=== PATIENT | female | born 1945 | race Caucasian/White ===

== ENCOUNTER 2017-03-30 11:23 | Emergency (ER) | payer MEDICARE, OTHER ==
[2017-03-30] MEDS ORDERED: HYDROcodone/Acetaminophen 5/325 mg Tablet ONE (12:21)
[2017-03-30] MEDS ORDERED: Acetaminophen 325 MG TAB ONE (12:36)
--- NOTE | 2017-03-30 13:26 | CT ---
NONCONTRAST CT OF THE BRAIN INDICATIONS: Trauma with head pain. COMPARISON: Prior exam dated 01/09/2016. FINDINGS: There is stable encephalomalacia involving the left parietal region. There are stable prior craniec kenyon changes involving the left parietal skull. Mild chronic small vessel white matter ischemic rachelle nge is similar. The septum pellucidum and third ventricle are midline. No definite acute infarct, hemorrhage, or hydrocephalus is present. IMPRESSION: 1. No acute intracranial abnormality. 2. Stable post surgical change involving the left parietal skull. 3. Stable chronic small vessel white matter ischemic change. POS: [facility]
--- NOTE | 2017-03-30 13:30 | CT ---
NONCONTRAST CT OF THE CERVICAL SPINE INDICATIONS: History of trauma with neck pain. COMPARISON: 01/09/2010 FINDINGS: No acute fracture or subluxation is evident. There is mild multilevel spondylosis of the cervical spine. The craniocervical junction is normal a ppearing. There is mild emphysematous change involving both lung apices. The prevertebral soft tissues are normal appearing. IMPRESSION: No acute fracture or subluxation demonstrated. POS: [facility]
--- NOTE | 2017-03-30 13:31 | RAD ---
RIGHT KNEE FOUR VIEWS HISTORY: Knee injury. FINDINGS: There are arthritic changes of the knee. There is some medial compartment narrowing. There is no f racture or joint effusion. IMPRESSION: No evidence of fracture. POS: [facility]
== END 2017-03-30 13:34 ==
LOC: MADERS 11:23
DX: S00.03XA Contusion of scalp, initial encounter (principal); S80.02XA Contusion of left knee, initial encounter; S80.01XA Contusion of right knee, initial encounter; E03.9 Hypothyroidism, unspecified; K21.9 Gastro-esophageal reflux disease without esophagitis; I10 Essential (primary) hypertension; E66.9 Obesity, unspecified; F03.90 Unspecified dementia, unspecified severity, without behavioral disturbance, psychotic disturbance, mood disturbance, and anxiety; Z87.891 Personal history of nicotine dependence; W01.198A Fall on same level from slipping, tripping and stumbling with subsequent striking against other object, initial encounter; Y92.129 Unspecified place in nursing home as the place of occurrence of the external cause
CPT/HCPCS: 70450; 72125

== ENCOUNTER 2018-02-09 19:31 | Emergency (ER) | payer MEDICARE, BC, OTHER ==
[2018-02-09] MEDS ORDERED: Sodium Chloride Irrig Solution 250 ML BOT ONE (19:38)
[2018-02-09] MEDS ORDERED: Triple Antibiotic Oint 1 GM Packet ONE (20:56)
--- NOTE | 2018-02-09 21:29 | CT ---
CT BRAIN WITHOUT CONTRAST: HISTORY: Fall. Trauma. Scalp hematoma. COMPARISON: CT brain from 03/30/2017. FINDINGS: Left craniectomy defect. Extensive white matter changes. Moderate atrophy. No acute hemorrhage or infarct. No midline shift or mass effect. Hypodensity of the right basal yarelis glia is new from the comparison examination, although not definitively acute. IMPRESSION: 1. Chronic changes. No acute intracranial abnormality. 2. New from the comparison examination hypodensity right basal ganglia, although not definitively ac julio. If the patient is having symptoms of an acute infarction, MRI would be recommended. POS: [facility]
--- NOTE | 2018-02-09 21:29 | RAD ---
RIGHT FOREARM TWO VIEWS: HISTORY: Fall. COMPARISON: None. FINDINGS: The forearm appears to be intact. No displaced fracture. Findings suggestive of chronic lateral epi condylitis. IMPRESSION: Intact forearm. POS: [facility]
== END 2018-02-09 21:05 ==
LOC: MADERS 19:31
DX: S00.03XA Contusion of scalp, initial encounter (principal); S50.811A Abrasion of right forearm, initial encounter; I10 Essential (primary) hypertension; E03.9 Hypothyroidism, unspecified; K21.9 Gastro-esophageal reflux disease without esophagitis; G40.909 Epilepsy, unspecified, not intractable, without status epilepticus; E66.9 Obesity, unspecified; Z86.718 Personal history of other venous thrombosis and embolism; F03.90 Unspecified dementia, unspecified severity, without behavioral disturbance, psychotic disturbance, mood disturbance, and anxiety; Z87.891 Personal history of nicotine dependence; W18.30XA Fall on same level, unspecified, initial encounter
CPT/HCPCS: 70450

== ENCOUNTER 2018-03-20 19:30 | Emergency (ER) | payer MEDICARE, BC, OTHER ==
--- NOTE | 2018-03-20 20:38 | RAD ---
RADIOGRAPH RIGHT ANKLE 3 VIEWS: DATE: 03/20/18 TIME: 8:01 p.m. HISTORY: 72-year-old female with acute traumatic right ankle pain from fall. COMPARISON: No prior right ankle radiographs are available. FINDINGS: There is a transversely oriented fracture with irregular margins across the mid portion of the medial malleolus, with mild, approximately 10-20% bone width lateral displacement of the distal fragment, a nd mild inferior displacement of the distal fragment. This is probably acute, although there is the p ossibility that this could be subacute. There are moderate degenerative changes of the ankle mortise. There is diffuse soft tissue swelling of the ankle, but asymmetrically especially in the medial and anterior aspects. No other fracture identified. IMPRESSION: 1. Mildly displaced, acute, traumatic fracture of medial malleolus. 2. Adjacent soft tissue contusion. 3. Moderate osteoarthrosis of the ankle. POS: [facility]
--- NOTE | 2018-03-20 21:07 | RAD ---
RADIOGRAPH THORACIC SPINE 2 VIEWS: 03/20/18 Attention Meredith in billing: this is a 2 view, not 1 view. HISTORY: 72-year-old female with persistent post-traumatic mid back pain after fall two weeks ago. COMPARISON: No recent T-spine studies in the last couple of years. FINDINGS: Mild lateral curvature. Flowing, bridging end plate marginal osteophytes throughout the mid and lower thoracic spine. Diffuse osteopenia. Degenerative changes. Vertebral body heights are maintained thro ughout the mid and lower thoracic spine. Upper thoracic spine is obscured on the lateral view. There is no swimmer's view. IMPRESSION: 1. No acute compression fracture of the mid and lower thoracic spine identified. 2. Upper thoracic spine is obscured. 3. Osteopenia. 4. DISH (diffuse idiopathic skeletal hyperostosis). POS: [facility]
--- NOTE | 2018-03-20 21:17 | RAD ---
RADIOGRAPH LUMBAR SPINE 2 VIEWS: 03/20/18 HISTORY: 72-year-old female with traumatic low back pain due to fall two weeks ago. FINDINGS: Vertebral body heights are maintained. There is no evidence of fracture. IMPRESSION: No evidence of compression fracture. mulu [] POS: [facility]
[2018-03-20] MEDS ORDERED: traMADol HCl 50 MG TAB ONE (21:54)
== END 2018-03-20 23:58 ==
LOC: MADERS 19:30
DX: S82.51XA Displaced fracture of medial malleolus of right tibia, initial encounter for closed fracture (principal); M54.5 Low back pain; I10 Essential (primary) hypertension; E03.9 Hypothyroidism, unspecified; K21.9 Gastro-esophageal reflux disease without esophagitis; E66.9 Obesity, unspecified; F03.90 Unspecified dementia, unspecified severity, without behavioral disturbance, psychotic disturbance, mood disturbance, and anxiety; Z87.891 Personal history of nicotine dependence; Z79.899 Other long term (current) drug therapy; W18.30XA Fall on same level, unspecified, initial encounter
CPT/HCPCS: 27760; 72020; 72100

== ENCOUNTER 2020-01-17 18:13 | Emergency (ER) | payer MEDICARE, BC, OTHER ==
[2020-01-17] MEDS ORDERED: Sodium Chloride 0.9% 1,000 ML ONE (18:58)
[2020-01-17] MEDS ORDERED: Cefepime 2 GM VIAL ONE (18:58)
[2020-01-17] MEDS ORDERED: Sodium Chloride 0.9% 250 ML 250 ML ONE (18:58)
[2020-01-17] MEDS ORDERED: Acetaminophen 650 MG Suppository ONE (18:58)
[2020-01-17] MEDS ORDERED: Sodium Chloride 0.9% 100 ML ONE (18:58)
[2020-01-17] MEDS ORDERED: Vancomycin HCl 500 MG VIAL ONE ×2 (18:58→20:37)
[2020-01-17] MEDS ORDERED: Vancomycin 1.5 GRAM/300 ML BAG 1.5 GM/300 ML BAG ONE (18:58)
[2020-01-17 19:24] LABS: #Basophils 0.1 thou/uL (0.0-0.2); #Lymphocytes 1.2 thou/uL (1.20-3.40); #Monocytes 0.6 thou/uL (0.11-0.59); #Neutrophils 12.1 thou/uL (1.40-6.50); %Basophils 0.7 % (0.0-1.0); %Eosinophils 0.1 % (0.0-10.0); %Lymphocytes 8.2 % (21.0-51.0); %Monocytes 4.6 % (0.0-10.0); %Neutrophils 86.5 % (42.0-75.0); Mean Corpuscular HGB CONC 32.2 g/dL (32.0-36.0); Mean Corpuscular Volume 93.1 fL (78.0-98.0); Mean Platelet Volume 9.1 fL (7.4-10.4); Platelet Count 210 thou/uL (130-400); RBC Distribution Width 11.5 % (11.5-14.5)
[2020-01-17 19:26] LABS: Bilirubin Negative (Negative); Blood, Urine Trace (Negative); Glucose, Urine (Dipstick) Negative (Negative); Leukocyte Trace (Negative); Nitrite Negative (Negative); Protein, Urine (Dipstick) 100 mg/dL (Neg-Trace)
[2020-01-17 19:28] LABS: Clarity Hazy (Clear)
[2020-01-17 19:32] LABS: Bacteria/HPF 1+ HPF (None Seen); RBC/HPF 0-3 HPF (0-3); Squamous Epithelial None Seen HPF (0-3); WBC/HPF 21-50 HPF (0-3)
[2020-01-17 19:36] LABS: ALT (SGPT) 44 U/L (8-55); AST (SGOT) 37 U/L (5-34); Albumin 3.7 g/dL (3.4-4.8); Alkaline Phosphatase 102 U/L (40-110); Anion Gap 17 mmol/L (10-20); BUN (Urea Nitrogen) 12 mg/dL (9.8-20.1); Bilirubin, Total 0.6 mg/dL (0.2-1.2); Calc. Creatinine Clearance 0 mL/min (70-130); Calcium 9.2 mg/dL (7.8-10.44); Carbon Dioxide 26 mmol/L (23-31); Chloride 98 mmol/L (98-107); Estimated GFR-MDRD Greater than 90; Globulin 3.3 g/dL (2.4-3.5); Glucose 132 mg/dL (83-110); Potassium 3.8 mmol/L (3.5-5.1); Sodium 137 mmol/L (136-145)
[2020-01-17 19:55] LABS: CKMB 0.5 ng/mL (0-6.6)
--- NOTE | 2020-01-17 20:29 | CT ---
CT BRAIN WITHOUT CONTRAST: Comparison: 02-09-18 History: Altered mental status Technique: Multiple contiguous axial images were obtained in a CT of the brain without contrast. Sagi ttal and coronal reformats were performed. FINDINGS: This exam is very limited secondary to significant motion artifact. There are scattered hypodensities in the subcortical and periventricular white matter, likely secondary to small vessel ischemic disea se. No obvious large confluent infarction is seen. There is no evidence of hydrocephalus, intracrania l hemorrhage, or extraaxial fluid collection. Post-surgical changes are seen in the left parietal calvarium. The overlying soft tissues are unremar kable. The visualized paranasal sinuses and mastoid air cells are grossly unremarkable. IMPRESSION: No evidence of acute intracranial abnormality on this significantly limited exam. POS: [facility]
--- NOTE | 2020-01-17 20:38 | RAD ---
SINGLE VIEW OF THE CHEST: Comparison: 10-03-18 History: Altered mental status, fever. Decreased oxygen saturation. FINDINGS: Single view of the chest shows an enlarged but stable cardiomediastinal silhouette. Diffuse increased interstitial markings are stable. There is no evidence of consolidation, mass or pleural effusions. Degenerative changes are seen in the spine. IMPRESSION: Cardiomegaly and chronic interstitial lung disease. POS: [facility]
== END 2020-01-17 21:55 | disposition short-term general hospital (02) ==
LOC: MADERS 18:13
DX: A41.9 Sepsis, unspecified organism (principal); R41.82 Altered mental status, unspecified; E05.90 Thyrotoxicosis, unspecified without thyrotoxic crisis or storm; R79.89 Other specified abnormal findings of blood chemistry; K21.9 Gastro-esophageal reflux disease without esophagitis; I10 Essential (primary) hypertension; A52.17 General paresis; E66.9 Obesity, unspecified; Z87.891 Personal history of nicotine dependence; Z86.73 Personal history of transient ischemic attack (TIA), and cerebral infarction without residual deficits; Z79.899 Other long term (current) drug therapy
CPT/HCPCS: 36415; 51701; 70450; 71045; 80053; 81003; 81015; 82553; 83605; 84443; 84484; 85025; 87040; 87077; 87086; 87149; 87186; 93005; 94760; 96365; 96367; A4353; J0692; J3370; J3490; J7050

== ENCOUNTER 2022-02-06 12:41 | Emergency (ER) | payer MEDICARE, BC, OTHER ==
[2022-02-06 14:21] LABS: #Eosinphils 0.2 thou/uL (0.0-0.7); #Lymphocytes 1.4 thou/uL (1.20-3.40); #Monocytes 0.5 thou/uL (0.11-0.59); #Neutrophils 4.7 thou/uL (1.40-6.50); %Basophils 0.4 % (0.0-1.0); %Eosinophils 2.4 % (0.0-10.0); %Lymphocytes 21.1 % (21.0-51.0); %Neutrophils 69.1 % (42.0-75.0); Hemoglobin 15.1 g/dL (12.0-16.0); Mean Corpuscular HGB CONC 30.2 g/dL (32.0-36.0); Mean Corpuscular Volume 96.1 fL (78.0-98.0); Mean Platelet Volume 10.7 fL (7.4-10.4); Platelet Count 155 thou/uL (130-400); RBC Distribution Width 13.8 % (11.5-14.5); Red Blood Cell (RBC) Count 5.21 mill/uL (4.20-5.40); White Blood Cell (WBC) Count 6.8 thou/uL (4.8-10.8)
[2022-02-06 14:43] LABS: Anion Gap 16 mmol/L (10-20); BUN (Urea Nitrogen) 11 mg/dL (9.8-20.1); Carbon Dioxide 31 mmol/L (23-31); Chloride 102 mmol/L (98-107); Potassium 3.6 mmol/L (3.5-5.1); Sodium 145 mmol/L (136-145)
[2022-02-06 14:44] LABS: ALT (SGPT) 14 U/L (8-55); AST (SGOT) 20 U/L (5-34); Albumin 3.5 g/dL (3.4-4.8); Alkaline Phosphatase 49 U/L (40-110); Bilirubin, Total 0.4 mg/dL (0.2-1.2); Calc. Creatinine Clearance 0 mL/min (70-130); Calcium 9.2 mg/dL (7.8-10.44); Globulin 2.7 g/dL (2.4-3.5); Glucose 124 mg/dL (83-110); Protein, Total 6.2 g/dL (5.8-8.1)
[2022-02-06 15:02] LABS: Bilirubin Negative (Negative); Blood, Urine Trace (Negative); Clarity Clear (Clear); Glucose, Urine (Dipstick) Negative (Negative); Ketone, Urine Negative (Negative); Leukocyte Negative (Negative); Nitrite Negative (Negative); Protein, Urine (Dipstick) Negative (Neg-Trace); Specific Gravity, Urine 1.015 (1.005-1.030); Urobilinogen 0.2 mg/dL (Less than 2)
[2022-02-06 15:13] LABS: Bacteria/HPF Rare-Few HPF (None Seen); RBC/HPF 0-3 HPF (0-3); Squamous Epithelial 0-3 HPF (0-3); WBC/HPF 0-3 HPF (0-3)
== END 2022-02-06 19:00 ==
LOC: MADERS 12:41
DX: J20.9 Acute bronchitis, unspecified (principal); F03.90 Unspecified dementia, unspecified severity, without behavioral disturbance, psychotic disturbance, mood disturbance, and anxiety; I10 Essential (primary) hypertension; Z87.891 Personal history of nicotine dependence; Z86.718 Personal history of other venous thrombosis and embolism
CPT/HCPCS: 36415; 51701; 70450; 71045; 80053; 81003; 81015; 83605; 84443; 85025; 93005; 94760